=== PATIENT | female | born 1950 | race Caucasian/White ===

== ENCOUNTER 2022-08-20 08:54 | Day surgery (SDC) | payer MEDICARE, SELFPAY ==
[2022-08-20 09:28] VITALS: BP 142/73; PULSE 84; RESP 16; TEMP 36.5; O2SAT 93
[2022-08-20] MEDS: Tropicam./Phenyleph. (1/2.5%) 5 ML BTL OD ×3 (09:39→09:49)
--- NOTE | 2022-08-20 10:14 | ANES.PREOP_ITS ---
General Info Date of Service Date Performed: 08/20/22 Height: 5 ft 5 in Weight: 97.9 kg Body Mass Index (BMI): 35.9 Surgical Procedure: Operation Date: 08/20/22 11:40 Proposed Procedure Side Surgeon p Cataract Extraction with IOL Implant Right Migue Jonas MD Meds Allergies and Home Medications Allergies Allergy/AdvReac Type Severity Reaction Status Date / Time oxycodone [Oxycodone] Allergy Severe hives & Verified 08/20/22 09:15 itching unknown pain medication AdvReac Severe constipatio Uncoded 08/19/22 10:36 n Home Medication Medication Instructions Recorded aspirin 81 mg tablet,delayed 81 mg PO DAILY 12/07/12 release (Aspir-) cholecalciferol (vitamin D3) 10 400 unit PO BID 12/07/12 mcg (400 unit) capsule (Vitamin D3) insulin glargine 100 unit/mL 110 units SQ DAILY 12/07/12 subcutaneous solution (Lantus U-100 Insulin) lovastatin 20 mg tablet 40 mg PO DAILY 12/07/12 omeprazole 10 mg capsule,delayed 20 mg PO DAILY 12/07/12 release potassium chloride 10 mEq 10 meq PO DAILY 12/07/12 tablet,extended release (Klor-Con) pregabalin 75 mg capsule (Lyrica) 150 mg PO BID 12/07/12 tramadol 50 mg tablet 50 mg PO TID PRN 12/07/12 vitamin B complex 1 ea PO DAILY 12/07/12 metformin 1,000 mg tablet 500 mg PO BID 12/14/12 dulaglutide 1.5 mg/0.5 mL 1.5 mg subcut DIRECTED 08/19/22 subcutaneous pen injector (Trulicity) duloxetine 30 mg capsule,delayed 30 mg PO DAILY 08/19/22 release sprinkle furosemide 40 mg tablet 40 mg PO DAILY 08/19/22 insulin aspart U-100 100 unit/mL 14 sliding scale dose subcut 08/19/22 (3 mL) subcutaneous pen (Novolog DIRECTED FlexPen U-100 Insulin aspart) magnesium oxide 400 mg PO DAILY 08/19/22 spironolactone 100 mg tablet 100 mg PO DAILY 08/19/22 Current Visit Medications: Current Medications Generic Name Dose Route Start Last Admin Trade Name Freq PRN Reason Stop Dose Admin Acetaminophen 1,000 mg 08/20/22 06:00 Acetaminophen 500 Mg Tab PO Q4H PRN PRN Miscellaneous Medication 0 ml 08/20/22 06:00 08/20/22 09:49 Tropicam./Phenyleph. (1/2.5%) 5 Ml Btl OD 1 drp DIRECTED [facility] Administration Miscellaneous Medication 0 ml 08/20/22 06:00 Prednisolone 1%, Moxifloxacin 0.5%, Nepafenac 0.1% 5ml Btl OD DIRECTED [facility] Tetracaine HCl 0 ml 08/20/22 06:00 Tetracaine 0.5% 4 Ml Btl OD DIRECTED [facility] Medical History Medical History Carcinoma of colon (~2006) DEGENERATIVE JOINT DISEASE L-SPINE Diabetes mellitus Essential hypertension EXTREMITY EDEMA Gastroesophageal reflux disease Hx of carpal tunnel syndrome Hyperlipidemia Irritable colon Migraine neuropathy Osteoporosis Overweight PANDIVERTICULOSIS Plantar fasciitis Primary fibromyalgia syndrome Rotator cuff tear Sleep apnea does not use a machine. Sleeps in chair. uterine cancer Medical History Comments:: Per pt. 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 Surgical History Surgical History colonoscopy [place] 2010 hysterectomy Ligation of fallopian tube Partial resection of colon RIGHT Tobacco Smoking/Tobacco Use Status: Never Alcohol Alcohol Intake: former Substance Use Substance use: Never Substance use type: does not use Vital Signs and Lab Results Vital Signs Most Recent Vital Signs in EMR: Most Recent Vital Signs Temp Pulse Resp BP Pulse Ox 36.5 C 84 16 142/73 H 93 08/20/22 09:28 08/20/22 09:28 08/20/22 09:28 08/20/22 09:28 08/20/22 09:28 Point of Care Results Point of Care Results: Finger Stick Blood Glucose 206 08/20/22 09:24 Lab Results Blood Type / Crossmatch: No Data to Display Complete Blood Count: No Data to Display Complete Metabolic Panel: No Data to Display Liver Function Panel: No Data to Display Coagulation Panel: No Data to Display Cardiac Panel: No Data to Display Arterial Blood Gas: No Data to Display Venous Blood Gas: No Data to Display Pancreas Panel: No Data to Display Thyroid Panel: No Data to Display Infectious Disease: No Data to Display Blood Cultures: No Data to Display Toxicology Panel: No Data to Display Anesthesia Assessment and Plan Anesthesia History Personal History: Delayed Emergence Family History: Other Exercise Tolerance Exercise Tolerance: Metabolic Equivalents>4 Pertinent Negatives Pertinent Negatives: No Symptoms of GERD and No Major Cardiovascular Symptoms or Complaints Cardiac & Pulmonary Exam Cardiac Exam: Normal S1/S2 Heart Sounds Pulmonary Exam: Clear Bilateral Breath Sounds Implantable Cardiac Device Does patient have a Pacemaker or an ICD?: No Airway Exam Known Difficult Airway: No Mallampati Class: 2 Mouth Opening: Normal (> 3cm) Thyromental Distance: Greater than 3 cm Neck Range of Motion: Full ROM Neck Circumference: Thick Teeth Condition: Removable Dentures/Plates Upper ASA Classification ASA Score: ASA 3 Emergency Case?: No NPO Status NPO Status: NPO Clears >2 hours, Solids >8 hours Anesthesia Plan Resuscitation Status: Full Code Anesthesia Technique: MAC Anesthesia Airway Planned: Natural Airway Monitors Used: Standard Monitors
[2022-08-20 10:16] VITALS: BMI 35.9
[2022-08-20] MEDS: Tetracaine 0.5% 4 ML BTL OD (10:54)
[2022-08-20] MEDS: Balanced Salt Soln.-PLUS 500 ML BAG (10:55)
[2022-08-20] MEDS: Duovisc Viscoelastic System EACH 1 EACH (10:55)
[2022-08-20] MEDS: Lidocaine 1% Pres-Free 5 ML VIAL (10:55)
[2022-08-20] MEDS: Povidone-Iodine Ophth 30 ML BTL (10:57)
[2022-08-20] MEDS: Trypan Blue 0.06% 0.5 ML SYR (10:57)
[2022-08-20] MEDS: Phenylephrine/Lidocaine (15/10) MG/ML 1 ML VIAL (10:57)
[2022-08-20 11:38] VITALS: BP 129/57; PULSE 77; RESP 18; TEMP 36.9; O2SAT 96
--- NOTE | 2022-08-20 11:41 | W.PM.DSUDISC ---
Date of service: 08/20/22 Time of Service: 11:41 Discharge Plan Disposition Patient Disposition: Home Discharge Details Attending Provider: Migue Jonas Primary Care Provider: Sheila Soto Home Meds and New Rx's Prescriptions: No Action insulin glargine [Lantus U-100 Insulin] 100 UNIT/1 ML solution 110 units SQ DAILY potassium chloride [Klor-Con 10] 10 MEQ tablet extended release 10 meq PO DAILY aspirin [Aspir-81] 81 MG tablet,delayed release (DR/EC) 81 mg PO DAILY tramadol 50 MG tablet 50 mg PO TID PRN omeprazole 10 MG capsule,delayed release(DR/EC) 20 mg PO DAILY vitamin B complex 1 EACH tablet 1 ea PO DAILY lovastatin 20 MG tablet 40 mg PO DAILY cholecalciferol (vitamin D3) [Vitamin D3] 400 UNIT capsule 400 unit PO BID pregabalin [Lyrica] 75 MG capsule 150 mg PO BID metformin 1,000 MG tablet 500 mg PO BID furosemide 40 mg Tablet 40 mg PO DAILY spironolactone 100 mg Tablet 100 mg PO DAILY insulin aspart U-100 [Novolog FlexPen U-100 Insulin] 100 unit/mL (3 mL) Insulin Pen 14 sliding scale dose SUBCUT DIRECTED Trulicity 1.5 mg/0.5 mL Pen Injector 1.5 mg SUBCUT DIRECTED magnesium oxide 400 mg magnesium Tablet 400 mg PO DAILY duloxetine 30 mg Capsule, Delayed Rel Sprinkle 30 mg PO DAILY Discharge Instructions Stand Alone Forms: Post-op Topical Cataract, Press Ganey (DSU) Discharge Orders Discharge Orders: Discharge Order (Routine); Ordered 08/20/22 Ordered By: Migue Jonas DS: Diagnosis Discharge Diagnosis (1) Nuclear age-related cataract, right eye: Status: Resolved (2) Cortical cataract of right eye: Status: Resolved (3) Posterior subcapsular age-related cataract, right eye: Status: Resolved
--- NOTE | 2022-08-20 11:43 | W.PM.OP ---
Date of service: 08/20/22 Time of Service: 11:43 Operative Note Operative Note DATE OF PROCEDURE: 08/20/22 PRE-OP DIAGNOSIS: Nuclear/cortical/posterior subcapsular/mature white cataract, right eye Poorly dilating pupil, right eye Poor red reflex, right eye POST-OP DIAGNOSIS: same PROCEDURE: Cataract extraction using phacoemulsification with intraocular lens implant, right eye, with pupillary dilation using Malyugin Ring and capsular staining using Vision Blue SURGEON: Migue Jonas Refer to Anesthesia Record ESTIMATED BLOOD LOSS: 0 PATHOLOGY: none sent COMPLICATIONS: None Patient was transported to: same day Patient's condition: stable Implants: Santos Clareon [id number] Indications: Progressive decreased vision due to cataract, right eye Procedure Description: CATARACT SURGERY OPERATIVE REPORT PREOPERATIVE DIAGNOSIS: 1. Nuclear/cortical/posterior subcapsular/mature white cataract, right eye 2. Poorly dilating pupil, right eye 3. Poor red reflex, right eye POSTOPERATIVE DIAGNOSIS: Same OPERATION: 1. Cataract extraction using phacoemulsification with posterior chamber intraocular lens implant, right eye. 2. Pupillary dilation and iris stabilization using Malyugin Ring 3. Capsular staining with VIsion Blue IOL: IOL Fisher Purse Seine/Model: Santos Clareon [id number] IOL Power: + 21.0 diopters IOL Serial Number: [id number] Optic Diameter: 6.0mm Haptic/Overall Diameter: 13.0mm PHACO INFO: Santos Centurion Vision System with OZil and Active Fluidics Cumulative Dispersed Energy (CDE): 20.84 seconds SURGEON: Migue Jonas MD, AGA ANESTHESIA: Monitored Anesthesia Care (MAC), with local sub-tenon's anesthetic infiltration COMPLICATIONS: None SPECIMENS: None INDICATIONS FOR PROCEDURE: The patient is a 72-year-old lady with history of significant decreased vision of the right eye. She is noted to have a mature white cataract in the right eye with light perception vision. The anterior chamber is shallow and the pupil dilates poorly. Dense nuclear sclerosis is visible in the center of the cataract. The option of cataract surgery was offered to the patient and she wished to proceed. PROCEDURE: The correct surgical eye was identified and marked as the right eye and the pupil was dilated in the preoperative area using mydriatics and cycloplegics. The dilated pupil size was 4.0 mm. She elected to proceed without oral sedation.. The patient was brought to the operating room where cardiopulmonary monitoring was instituted and surgical time-out was performed, confirming the correct operative eye and IOL power. Topical anesthesia was administered and ophthalmic povidone-iodine 5% was instilled into the conjunctival fornices. Lidocaine gel was applied to the cornea and the ovi-ocular area was prepped with Betadine 10% solution and draped in the usual sterile fashion for intraocular surgery, including an aperture drape. A Tegaderm transparent film dressing was cut in half and used to cover the lashes and lid margins. Care was taken to sequester the lashes and lid margins under the Tegaderm dressing. A lid speculum was placed between the lids of the operative eye and the Santos operating microscope was maneuvered into position. Bobby scissors were then used to make a conjunctival buttonhole approximately 6mm posterior to the limbus in the inferonasal quadrant. Blunt dissection was carried out to expose bare sclera, and a blunt-tipped sub-tenon?s anesthesia cannula was introduced and passed posteriorly along the globe where non-preserved plain lidocaine was injected into posterior sub-Tenon?s space. A sideport knife was used to make a paracentesis port inferiortemporally. Intraocular phenylephrine/lidocaine was injected into the anterior chamber. No additional pupillary dilation was achieved. The anterior chamber was noted to be quite shallow. Provisc was then injected into the anterior chamber.. A 2.4mm keratome knife was used to construct a 2-plane near-clear corneal tunnel extending 2.0mm into clear cornea superiortemporally. A 6.25 mm Malyugin Ring was then inserted into the pupillary space and engaged with the Kuglen hook. The irrigation/aspiration handpiece was then used to remove the Provisc from the anterior chamber. The anterior chamber was then reformed with balanced salt solution and VisionBlue was injected into the anterior chamber and allowed to sit for approximately 30 seconds for capsular staining. Balanced salt solution was then used to irrigate the excess VisionBlue from the eye. Viscoat was then used to fill the anterior chamber. A flap was raised on the anterior capsule using a cystotome. A significant mount of liquefied white cortex was expressed from the capsule opening. An anterior chamber cannula was then used to massage as much liquefied cortical material through the small central capsular opening as was possible, which was then removed using the irrigation/aspiration handpiece. The anterior chamber was then reformed using Viscoat. Attempts were made at propagating the capsulorrhexis, however significant mount of liquefied cortex continued to emanate from the central capsular opening. Liquefied cortex was then removed from the anterior chamber a second time, and the anterior chamber refilled with Provisc. Finally, a flap was able to be raised on the anterior capsule and a capsulorrhexis was propagated using forceps, approximately 5.0 mm in diameter. The anterior capsule was noted to be extremely thin. Viscoat was injected intermittently due to the shallow anterior chamber. Very gentle [place] dissection was carried out, and abundant liquefied cortex was able to be expressed from the capsular bag. The lens nucleus was quite dense and was able to be rotated easily. The lens nucleus was then disassembled and removed within the capsular bag and iris plane using phacoemulsification. A deep central groove was sculpted in the lens nucleus, which was then cracked into 2 halves, each half was then chopped into multiple smaller fragments. When the final quadrant remained. Additional Viscoat was injected into the capsular bag and anterior chamber, and then the final quadrant was carefully removed. Residual cortical material was removed using the 45-degree angled silicone I/A tip with 0.3mm port. Very little cortical material remained. The capsular bag was then inflated and the anterior chamber deepened with viscoelastic. The lens implant described above was inserted into the capsular bag using the Santos Autonome pre-loaded Injector. A Kuglen hook was used to dial the IOL into position. The Malyugin Ring was removed in the reverse order of its insertion. Residual viscoelastic was then removed first from posterior to the IOL, then from the anterior chamber using the I/A handpiece. The lens implant was noted to center nicely within the capsular bag. The incisions were stromally hydrated, and the anterior chamber was reformed using BSS. Then 0.5cc of moxifloxacin 1.0mg/ml were injected into the capsular bag and anterior chamber. The incisions were checked with a Weck spear and found to be secure. Several drops of ophthalmic povidone-iodine 5% were then applied to the eye followed by two drops of Imprimis combination prednisoone/moxifloxacin/nepafenac solution. The drapes were removed and a clear plastic protective eye shield was placed over the eye. The patient was then returned to Same Day Surgery in stable condition.
--- NOTE | 2022-08-20 12:04 | W.ANESPOSTOP ---
Postoperative Evaluation Date, Time and Location Date Performed: 08/20/22 Time Performed: 11:58 Patient Location: Day Surgery Unit Vital Signs Most Recent Imported Vital Signs: Most Recent Vital Signs Temp Pulse Resp BP Pulse Ox 36.9 C 77 18 129/57 L 96 08/20/22 11:38 08/20/22 11:38 08/20/22 11:38 08/20/22 11:38 08/20/22 11:38 Pain Score Most Recent Pain Score: Most Recent Pain Score Pain Level 0 08/20/22 11:38 Assessment Mental Status: Awake (Alert & Oriented to Patient Baseline) Airway and Respiratory Function: Patent airway with normal (patient baseline) respiratory exam Cardiovascular Function: Hemodynamically Stable Hydration Status: Adequately Hydrated Nausea & Vomiting: No Nausea or Vomiting Pain: Pt. Denies Any Pain Peripheral Nerve Block: Patient did not receive a nerve block
== END 2022-08-20 12:09 | disposition home or self-care (01) ==
PROVIDERS: PCP Family Medicine; Visit Provider Ophthalmology
PROC: (CPT 66982; principal; 2022-08-20 11:30)
DX: H25.041 Posterior subcapsular polar age-related cataract, right eye; H25.11 Age-related nuclear cataract, right eye
CPT/HCPCS: 66982; V2632

== ENCOUNTER 2022-09-13 11:44 | Day surgery (SDC) | payer MEDICARE, SELFPAY ==
--- NOTE | 2022-09-13 07:18 | W.PREOPHP ---
Assessment and Plan Assessment and plan (1) Posterior subcapsular age-related cataract of left eye: Status: Acute Assessment and plan: Assessment: Visually significant cataract of the left eye. Plan: Cataract extraction with lens implantation of the left eye. (2) Cortical age-related cataract, left eye: Status: Acute Assessment and plan: Assessment: Visually significant cataract of the left eye. Plan: Cataract extraction with lens implantation of the left eye. (3) Nuclear age-related cataract, left eye: Status: Acute Assessment and plan: Assessment: Visually significant cataract of the left eye. Plan: Cataract extraction with lens implantation of the left eye. History of Present Illness History of Present Illness Chief Complaint: Progressive decreased vision left eye Narrative: The patient is a 72-year-old lady who presented in June with complaints of progressive decreased vision in both eyes, left eye worse than right. She claims has been getting bad for a while. She has difficulty with depth perception and reading road signs, as well as significant difficulty with glare from headlights. On examination she was noted to have a mature white cataract of the right eye with light perception vision and a milder nuclear/cortical/posterior subcapsular cataract of the left eye. She underwent cataract surgery in the right eye on 08/20/2022 and postoperatively is doing well. She now presents for cataract surgery in the left eye. Review of Systems All systems reviewed & are unremarkable except as noted in HPI and below PFSH All Active Problems Posterior subcapsular age-related cataract of left eye (Acute) Cortical age-related cataract, left eye (Acute) Nuclear age-related cataract, left eye (Acute) Medical History Carcinoma of colon (~2006) DEGENERATIVE JOINT DISEASE L-SPINE Diabetes mellitus Essential hypertension EXTREMITY EDEMA Gastroesophageal reflux disease Hx of carpal tunnel syndrome Hyperlipidemia Irritable colon Migraine neuropathy Osteoporosis Overweight PANDIVERTICULOSIS Plantar fasciitis Primary fibromyalgia syndrome Rotator cuff tear Sleep apnea does not use a machine. Sleeps in chair. uterine cancer Surgical History colonoscopy [place] 2010 hysterectomy Ligation of fallopian tube Partial resection of colon RIGHT Family History Mother Personal history of malignant neoplasm brain, possible mets from lung Father Acute myocardial infarction several Sister No problems noted. Sister No problems noted. Sister No problems noted. Sister No problems noted. Brother Sudden infant syndrome Brother No problems noted. Brother No problems noted. Son Autistic disorder Social History Smoking/Tobacco Use Status: Never Smoking risk assessment performed?: Yes Alcohol Intake: former Drug use: Never Substance use type: does not use Do you feel safe at home: Yes Do you feel safe in your relationship?: Yes Additional Social history: autistic son lives with her Meds Allergies and Home Medications Allergies Allergy/AdvReac Type Severity Reaction Status Date / Time oxycodone [Oxycodone] Allergy Severe hives & Verified 09/13/22 12:29 itching unknown pain medication AdvReac Severe constipatio Uncoded 09/13/22 12:29 n Home Medications Medication Instructions Recorded Confirmed Type aspirin 81 mg tablet,delayed 81 mg PO DAILY 12/07/12 09/13/22 History release (Aspir-) cholecalciferol (vitamin D3) 10 400 unit PO BID 12/07/12 09/13/22 History mcg (400 unit) capsule (Vitamin D3) insulin glargine 100 unit/mL 25 units SQ DAILY 12/07/12 09/13/22 History subcutaneous solution (Lantus U-100 Insulin) lovastatin 20 mg tablet 40 mg PO HS 12/07/12 09/13/22 History omeprazole 10 mg capsule,delayed 20 mg PO DAILY 12/07/12 09/13/22 History release potassium chloride 10 mEq 10 meq PO DAILY 12/07/12 09/13/22 History tablet,extended release (Klor-Con) pregabalin 75 mg capsule (Lyrica) 150 mg PO BID 12/07/12 09/13/22 History vitamin B complex 1 ea PO DAILY 12/07/12 09/13/22 History metformin 1,000 mg tablet 500 mg PO BID 12/14/12 09/13/22 History dulaglutide 1.5 mg/0.5 mL 1.5 mg subcut DIRECTED 08/19/22 09/13/22 History subcutaneous pen injector (Trulicity) duloxetine 30 mg capsule,delayed 30 mg PO DAILY 08/19/22 09/13/22 History release sprinkle furosemide 40 mg tablet 40 mg PO DAILY 08/19/22 09/13/22 History insulin aspart U-100 100 unit/mL 20 sliding scale dose subcut 08/19/22 09/13/22 History (3 mL) subcutaneous pen (Novolog DIRECTED FlexPen U-100 Insulin aspart) magnesium oxide 400 mg PO DAILY 08/19/22 09/13/22 History spironolactone 100 mg tablet 100 mg PO DAILY 08/19/22 09/13/22 History Exam Eyes Other: Most recent ocular examination is significant for uncorrected visual acuity of 20/40 for treatment OD, 20/20 OS. Extract motility is normal. Intraocular pressure is 20 OD 18 OS. Slit-lamp examination is significant for pupils dilating only to 4 mm. There is a well-positioned PCIOL OD with clear posterior capsule. Some corneal folds and and edema are present OD. In the left eye there is moderate cortical and nuclear cataract with mild posterior subcapsular cataract. Funduscopic examination reveals disc cupping of 0.3 OU with normal vessels, macula, peripheral retina and vitreous. Resp Auscultation: clear to auscultation bilaterally Cardio Rate: regular rate Rhythm: regular rhythm
--- NOTE | 2022-09-13 07:46 | ANES.PREOP_ITS ---
General Info Date of Service Date Performed: 09/13/22 Height: 5 ft 5 in Weight: 97.9 kg Body Mass Index (BMI): 35.9 Surgical Procedure: Operation Date: 09/13/22 15:40 Proposed Procedure Side Surgeon p Cataract Extraction with IOL Implant Left Migue Jonas MD Meds Allergies and Home Medications Allergies Allergy/AdvReac Type Severity Reaction Status Date / Time oxycodone [Oxycodone] Allergy Severe hives & Verified 09/13/22 12:29 itching unknown pain medication AdvReac Severe constipatio Uncoded 09/13/22 12:29 n Home Medication Medication Instructions Recorded aspirin 81 mg tablet,delayed 81 mg PO DAILY 12/07/12 release (Aspir-) cholecalciferol (vitamin D3) 10 400 unit PO BID 12/07/12 mcg (400 unit) capsule (Vitamin D3) insulin glargine 100 unit/mL 25 units SQ DAILY 12/07/12 subcutaneous solution (Lantus U-100 Insulin) lovastatin 20 mg tablet 40 mg PO HS 12/07/12 omeprazole 10 mg capsule,delayed 20 mg PO DAILY 12/07/12 release potassium chloride 10 mEq 10 meq PO DAILY 12/07/12 tablet,extended release (Klor-Con) pregabalin 75 mg capsule (Lyrica) 150 mg PO BID 12/07/12 vitamin B complex 1 ea PO DAILY 12/07/12 metformin 1,000 mg tablet 500 mg PO BID 12/14/12 dulaglutide 1.5 mg/0.5 mL 1.5 mg subcut DIRECTED 08/19/22 subcutaneous pen injector (Trulicity) duloxetine 30 mg capsule,delayed 30 mg PO DAILY 08/19/22 release sprinkle furosemide 40 mg tablet 40 mg PO DAILY 08/19/22 insulin aspart U-100 100 unit/mL 20 sliding scale dose subcut 08/19/22 (3 mL) subcutaneous pen (Novolog DIRECTED FlexPen U-100 Insulin aspart) magnesium oxide 400 mg PO DAILY 08/19/22 spironolactone 100 mg tablet 100 mg PO DAILY 08/19/22 Current Visit Medications: Current Medications Generic Name Dose Route Start Last Admin Trade Name Freq PRN Reason Stop Dose Admin Acetaminophen 1,000 mg 09/13/22 06:00 Acetaminophen 500 Mg Tab PO Q4H PRN PRN Miscellaneous Medication 0 ml 09/13/22 06:00 Tropicam./Phenyleph. (1/2.5%) 5 Ml Btl OS DIRECTED [facility] Miscellaneous Medication 0 ml 09/13/22 06:00 Prednisolone 1%, Moxifloxacin 0.5%, Nepafenac 0.1% 5ml Btl OS DIRECTED [facility] Tetracaine HCl 0 ml 09/13/22 06:00 Tetracaine 0.5% 4 Ml Btl OS DIRECTED [facility] PFSH Active Problems Active Problems: Problem Status Onset Code Posterior subcapsular age-related cataract of left eye H25.042 Cortical age-related cataract, left eye H25.012 Nuclear age-related cataract, left eye H25.12 Posterior subcapsular age-related cataract, right eye H25.041 Cortical cataract of right eye H26.9 Nuclear age-related cataract, right eye H25.11 Medical History Medical History Carcinoma of colon (~2006) DEGENERATIVE JOINT DISEASE L-SPINE Diabetes mellitus Essential hypertension EXTREMITY EDEMA Gastroesophageal reflux disease Hx of carpal tunnel syndrome Hyperlipidemia Irritable colon Migraine neuropathy Osteoporosis Overweight PANDIVERTICULOSIS Plantar fasciitis Primary fibromyalgia syndrome Rotator cuff tear Sleep apnea does not use a machine. Sleeps in chair. uterine cancer Medical History Comments:: Per pt. 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 Surgical History Surgical History colonoscopy mitz 2010 hysterectomy Ligation of fallopian tube Partial resection of colon RIGHT Tobacco Smoking/Tobacco Use Status: Never Alcohol Alcohol Intake: former Substance Use Substance use: Never Substance use type: does not use Vital Signs and Lab Results Vital Signs Most Recent Vital Signs in EMR: Temp Pulse Resp BP Pulse Ox 36.1 C L 75 16 137/64 93 09/13/22 12:38 09/13/22 12:38 09/13/22 12:38 09/13/22 12:38 09/13/22 12:38 Lab Results Blood Type / Crossmatch: No Data to Display Complete Blood Count: No Data to Display Complete Metabolic Panel: No Data to Display Liver Function Panel: No Data to Display Coagulation Panel: No Data to Display Cardiac Panel: No Data to Display Arterial Blood Gas: No Data to Display Venous Blood Gas: No Data to Display Pancreas Panel: No Data to Display Thyroid Panel: No Data to Display Infectious Disease: No Data to Display Blood Cultures: No Data to Display Toxicology Panel: No Data to Display Anesthesia Assessment and Plan Anesthesia History Personal History: Delayed Emergence Family History: Other Exercise Tolerance Exercise Tolerance: Metabolic Equivalents>4 Cardiac & Pulmonary Exam Cardiac Exam: Normal S1/S2 Heart Sounds Pulmonary Exam: Clear Bilateral Breath Sounds Implantable Cardiac Device Does patient have a Pacemaker or an ICD?: No Airway Exam Known Difficult Airway: No Mallampati Class: 2 Mouth Opening: Normal (> 3cm) Thyromental Distance: Greater than 3 cm Neck Range of Motion: Full ROM Neck Circumference: Thick Teeth Condition: Removable Dentures/Plates Upper ASA Classification ASA Score: ASA 3 Emergency Case?: No NPO Status NPO Status: NPO Clears >2 hours, Solids >8 hours Anesthesia Plan Resuscitation Status: Full Code Anesthesia Technique: MAC Anesthesia Airway Planned: Natural Airway Monitors Used: Standard Monitors Preoperative Comments:: 72 yo female for repeat cataract removal. no MKO previous. positioned with extra pillows under legs. Sig PMHx: DM, GERD, neuropathy, HTN, fibromyalgia, LOW (sleeps in chair).
[2022-09-13] MEDS: Tropicam./Phenyleph. (1/2.5%) 5 ML BTL OS ×3 (12:37→12:52)
[2022-09-13 12:38] VITALS: BP 137/64; PULSE 75; RESP 16; TEMP 36.1; O2SAT 93
[2022-09-13 12:50] VITALS: BMI 35.9
[2022-09-13] MEDS: Tetracaine 0.5% 4 ML BTL OS (13:42)
[2022-09-13] MEDS: Lidocaine 1% Pres-Free 5 ML VIAL (13:54)
[2022-09-13] MEDS: Duovisc Viscoelastic System EACH 1 EACH (13:55)
[2022-09-13] MEDS: Balanced Salt Soln.-PLUS 500 ML BAG (13:55)
[2022-09-13] MEDS: Phenylephrine/Lidocaine (15/10) MG/ML 1 ML VIAL (13:56)
[2022-09-13] MEDS: Povidone-Iodine Ophth 30 ML BTL (13:56)
[2022-09-13 14:15] VITALS: BP 114/69; PULSE 74; RESP 16; TEMP 36.3; O2SAT 93
--- NOTE | 2022-09-13 14:16 | W.PM.DSUDISC ---
Date of service: 09/13/22 Time of Service: 14:16 Discharge Plan Disposition Patient Disposition: Home Discharge Details Attending Provider: Migue Jonas Primary Care Provider: Sheila Soto Home Meds and New Rx's Prescriptions: No Action insulin glargine [Lantus U-100 Insulin] 100 UNIT/1 ML solution 25 units SQ DAILY potassium chloride [Klor-Con 10] 10 MEQ tablet extended release 10 meq PO DAILY aspirin [Aspir-81] 81 MG tablet,delayed release (DR/EC) 81 mg PO DAILY omeprazole 10 MG capsule,delayed release(DR/EC) 20 mg PO DAILY vitamin B complex 1 EACH tablet 1 ea PO DAILY lovastatin 20 MG tablet 40 mg PO HS cholecalciferol (vitamin D3) [Vitamin D3] 400 UNIT capsule 400 unit PO BID pregabalin [Lyrica] 75 MG capsule 150 mg PO BID metformin 1,000 MG tablet 500 mg PO BID furosemide 40 mg Tablet 40 mg PO DAILY spironolactone 100 mg Tablet 100 mg PO DAILY insulin aspart U-100 [Novolog FlexPen U-100 Insulin] 100 unit/mL (3 mL) Insulin Pen 20 sliding scale dose SUBCUT DIRECTED Trulicity 1.5 mg/0.5 mL Pen Injector 1.5 mg SUBCUT DIRECTED magnesium oxide 400 mg magnesium Tablet 400 mg PO DAILY duloxetine 30 mg Capsule, Delayed Rel Sprinkle 30 mg PO DAILY Discharge Instructions Stand Alone Forms: Post-op Topical Cataract, Press Ganey (DSU) Discharge Orders Discharge Orders: Discharge Order (Routine); Ordered 09/13/22 Ordered By: Migue Jonas DS: Diagnosis Discharge Diagnosis (1) Posterior subcapsular age-related cataract of left eye: Status: Resolved (2) Cortical age-related cataract, left eye: Status: Resolved (3) Nuclear age-related cataract, left eye: Status: Resolved
--- NOTE | 2022-09-13 14:17 | W.PM.OP ---
Date of service: 09/13/22 Time of Service: 14:17 Operative Note Operative Note DATE OF PROCEDURE: 09/13/22 PRE-OP DIAGNOSIS: Nuclear/cortical/posterior subcapsular cataract, left eye Poorly dilating pupil, left eye POST-OP DIAGNOSIS: same PROCEDURE: Cataract extraction using phacoemulsification with intraocular lens implant, left eye Pupillary dilation and iris stabilization with pupillary expansion device SURGEON: Migue Jonas ANESTHESIA TYPE: Local By Surgeon and MAC Refer to Anesthesia Record PATHOLOGY: none sent COMPLICATIONS: None Patient was transported to: same day Patient's condition: stable Implants: Santos Clareon [id number] Indications: Progressive decreased vision due to cataract, left eye Poorly dilating pupil, left eye Procedure Description: CATARACT SURGERY OPERATIVE REPORT PREOPERATIVE DIAGNOSIS: Nuclear/cortical/posterior subcapsular cataract, left eye Poorly dilating pupil, left eye POSTOPERATIVE DIAGNOSIS: Same OPERATION: Cataract extraction using phacoemulsification with posterior chamber intraocular lens implant, left eye. Pupillary dilation and iris stabilization with pupillary expansion device, 6.25 mm. IOL: IOL Coding Assistant/Model: Santos Clareon [id number] IOL Power: + 22.0 diopters IOL Serial Number: [id number] Optic Diameter: 6.0mm Haptic/Overall Diameter: 13.0mm PHACO INFO: Santos [employer]ion Vision System with OZil and Active Fluidics Cumulative Dispersed Energy (CDE): 4.42 seconds SURGEON: Migue Jonas MD, AGA ANESTHESIA: Monitored Anesthesia Care (MAC), with local sub-tenon's anesthetic infiltration COMPLICATIONS: None SPECIMENS: None INDICATIONS FOR PROCEDURE: The patient is a 72-year-old lady with history of diminished visual acuity in her left eye secondary to the development of nuclear/cortical/posterior subcapsular cataract of the left eye. She had a mature white cataract of the right eye and has recently undergone cataract surgery in the right eye. She is doing well postoperatively, and now presents for cataract surgery in the left eye. See office notes for details. PROCEDURE: The correct surgical eye was identified and marked as the left eye and the pupil was dilated in the preoperative area using mydriatics and cycloplegics. The dilated pupil size was 4.0 mm. The patient elected to proceed without oral sedation. The patient was brought to the operating room where cardiopulmonary monitoring was instituted and surgical time-out was performed, confirming the correct operative eye and IOL power. Topical anesthesia was administered and ophthalmic povidone-iodine 5% was instilled into the conjunctival fornices. Lidocaine gel was applied to the cornea and the ovi-ocular area was prepped with Betadine 10% solution and draped in the usual sterile fashion for intraocular surgery, including an aperture drape. A Tegaderm transparent film dressing was cut in half and used to cover the lashes and lid margins. Care was taken to sequester the lashes and lid margins under the Tegaderm dressing. A lid speculum was placed between the lids of the operative eye and the Santos LuxOR Revalia operating microscope was maneuvered into position. Bobby scissors were then used to make a conjunctival buttonhole approximately 6mm posterior to the limbus in the inferonasal quadrant. Blunt dissection was carried out to expose bare sclera, and a blunt-tipped sub-tenon?s anesthesia cannula was introduced and passed posteriorly along the globe where non-preserved plain lidocaine was injected into posterior sub-Tenon?s space. A sideport knife was used to make a paracentesis port superior/superiortemporally. Intraocular phenylephrine/lidocaine was injected into the anterior chamber. The anterior chamber was then filled with viscoelastic. A keratome knife was used construct a two-plane near-clear corneal tunnel extending 2.0mm into clear cornea in the temporal position. A 6.25mm Malyugin RIng inserted into the pupillary space and engaged with the Kuglen hook.. A flap was raised on the anterior capsule and capsulorhexis forceps were used to complete a continuous curvilinear capsulorhexis of 5.0 mm. Balanced salt solution was then used to perform cortical cleaving hydrodissection and nuclear hydrodelineation until the lens could be freely rotated within the capsular bag. The lens nucleus was then disassembled and removed within the capsular bag and iris plane using phacoemulsification. Residual cortical material was removed using the 45-degree angled silicone I/A tip with 0.3mm port. The posterior capsule was carefully polished to remove as much residual lens epithelial cells as safely possible. The capsular bag was then inflated and the anterior chamber deepened with viscoelastic. The lens implant described above was inserted into the capsular bag using the Santos Autonome Injector. A Kuglen hook was used to dial the IOL into position. The pupillary expansion device was then removed in the reverse order of its insertion. Residual viscoelastic was then removed first from posterior to the IOL, then from the anterior chamber using the I/A handpiece. The lens implant was noted to center nicely within the capsular bag. The incisions were stromally hydrated, and the anterior chamber was reformed using BSS. Then 0.5cc of moxifloxacin 1.0mg/ml were injected into the capsular bag and anterior chamber. The incisions were checked with a Weck spear and found to be secure. Several drops of ophthalmic povidone-iodine 5% were then applied to the eye followed by two drops of Imprimis combination prednisolone/moxifloxacin/nepafenac solution. The drapes were removed and a clear plastic protective eye shield was placed over the eye. The patient was then returned to Same Day Surgery in stable condition.
--- NOTE | 2022-09-13 14:22 | W.ANESPOSTOP ---
Postoperative Evaluation Date, Time and Location Date Performed: 09/13/22 Time Performed: 14:22 Patient Location: Day Surgery Unit Vital Signs Most Recent Imported Vital Signs: Most Recent Vital Signs Temp Pulse Resp BP Pulse Ox 36.3 C L 74 16 114/69 93 09/13/22 14:15 09/13/22 14:15 09/13/22 14:15 09/13/22 14:15 09/13/22 14:15 Pain Score Most Recent Pain Score: Most Recent Pain Score Pain Level 0 09/13/22 14:15 Assessment Mental Status: Awake (Alert & Oriented to Patient Baseline) Airway and Respiratory Function: Patent airway with normal (patient baseline) respiratory exam Cardiovascular Function: Hemodynamically Stable Hydration Status: Adequately Hydrated Nausea & Vomiting: No Nausea or Vomiting Pain: Pt. Denies Any Pain Peripheral Nerve Block: Patient did not receive a nerve block
== END 2022-09-13 14:45 | disposition home or self-care (01) ==
LOC: SUR 11:45
PROVIDERS: PCP Family Medicine; Visit Provider Ophthalmology
PROC: (CPT 66982; principal; 2022-09-13 15:30)
DX: H25.042 Posterior subcapsular polar age-related cataract, left eye (principal); H25.012 Cortical age-related cataract, left eye; H25.12 Age-related nuclear cataract, left eye; I10 Essential (primary) hypertension; K21.00 Gastro-esophageal reflux disease with esophagitis, without bleeding; G47.30 Sleep apnea, unspecified
CPT/HCPCS: 66982; V2632